=== PATIENT | female | born 1950 | race Caucasian/White ===

== ENCOUNTER 2019-09-29 14:43 | Outpatient (CLI) | payer MEDICARE, OTHER, SELFPAY ==
--- NOTE | 2019-09-29 14:55 | MM_ITS ---
WS: [id number] BILATERAL SCREENING DIGITAL MAMMOGRAM WITH CAD HISTORY: SCREENING COMPARISON: 03/27/2018 and 11/23/2016 Bilateral CC and MLO views submitted. Computer aided detection analyzed. Breast composition: There are scattered areas of fibroglandular density. No suspicious masses, microc alcifications or architectural distortion. Bilateral benign calcifications. MM/[id number] IMPRESSION: BI-RADS: 2-Benign FOLLOW UP: 1 Year Follow-up
--- NOTE | 2019-09-29 15:32 | XR_ITS ---
WS: [id number] SCREENING DEXA SCAN iLike CLINICAL INFORMATION: ASYMPTOMATIC POSTMENOPAUSAL COMPARISON: None. FINDINGS: The L1-L4 bone mineral density measures 0.929 g/cm2. This corresponds to a T score score of -2.1 and Z score of -0.4. Left femoral neck bone mineral density measures 0.861 g/cm2. This corresponds to a T score of -1.2 an d Z score of 0.2. Right femoral neck bone mineral density measures 0.848 g/cm2. This corresponds to a T score -1.3of an d Z score of 0.1. Mean femoral neck bone mineral density measures 0.855 g/cm2. This corresponds to a T score of -1.2 an d Z score of 0.2. XR/XR DEXA axial skeleton* [id number] IMPRESSION: Osteopenia Patient's FRAX calculated 10 year probability for major osteoporotic fracture i s 10.0 % and osteoporotic hip fracture is 1.7%.
== END 2019-09-29 14:44 | disposition home or self-care (01) ==
PROVIDERS: PCP Family Medicine; Visit Provider Family Medicine
DX: Z12.31 Encounter for screening mammogram for malignant neoplasm of breast (principal); Z78.0 Asymptomatic menopausal state; M85.89 Other specified disorders of bone density and structure, multiple sites
CPT/HCPCS: 77067; 77080

== ENCOUNTER 2021-01-05 13:58 | Outpatient (CLI) | payer MEDICARE, OTHER, SELFPAY ==
--- NOTE | 2021-01-05 14:07 | MM_ITS ---
WS: [id number] Exam: [id number] Date/Time of Exam: 01/05/2021 2:16 PM Reason For Exam: SCREENING VIEWS: MLO and CC views both breasts. Comparison made with prior exam of 08/27/2012, 11/23/2016 and 09/29/2019. Findings: There was no sign of mass, architectural distortion or suspicious calcification in either breast. He terogeneously dense MM/[id number] Impression: BI-RADS: 2-Benign FOLLOW-UP: 1 Year Follow-up This mammogram was also analyzed by the Computer Aided Detection System R2 Imag e Tumbler Tender.
== END 2021-01-05 13:59 | disposition home or self-care (01) ==
LOC: RADSHAW 14:05
PROVIDERS: PCP Family Medicine; Visit Provider Family Medicine
DX: Z12.31 Encounter for screening mammogram for malignant neoplasm of breast (principal)
CPT/HCPCS: 77067

== ENCOUNTER → 2021-11-09 08:00 | Outpatient (BNVA) | payer MEDICARE, OTHER, SELFPAY | PROVIDERS: PCP Family Medicine; Visit Provider Family Medicine | DX: Z00.00 Encounter for general adult medical examination without abnormal findings (principal) | CPT/HCPCS: 80053; 80061 ==

== ENCOUNTER → 2021-12-20 09:00 | Outpatient (BNVA) | payer MEDICARE, OTHER, SELFPAY | PROVIDERS: PCP Family Medicine; Visit Provider Family Medicine | DX: G25.0 Essential tremor (principal); F32.A Depression, unspecified; N39.0 Urinary tract infection, site not specified; R30.0 Dysuria | CPT/HCPCS: 81000; 87077; 87086; 87184 ==

== ENCOUNTER 2022-06-14 09:27 | Outpatient (CLI) | payer MEDICARE, OTHER, SELFPAY ==
--- NOTE | 2022-06-14 09:48 | MM_ITS ---
WS: [id number] BILATERAL SCREENING DIGITAL TOMOSYNTHESIS MAMMOGRAM WITH CAD HISTORY: SCREENING COMPARISON: 01/05/2021 and 09/29/2019 Bilateral CC and MLO views with tomosynthesis and synthetic mammography submitted. Computer aided det ection analyzed. Breast composition: There are scattered areas of fibroglandular density. No suspicious masses, microc alcifications or architectural distortion. Benign round coarse calcifications within each breast. MM/[id number] IMPRESSION: BI-RADS: 2-Benign FOLLOW UP: 1 Year Follow-up
== END 2022-06-14 09:28 | disposition home or self-care (01) ==
LOC: RAD 09:30
PROVIDERS: PCP Family Medicine; Visit Provider Family Medicine
DX: Z12.31 Encounter for screening mammogram for malignant neoplasm of breast (principal)
CPT/HCPCS: 77063; 77067

== ENCOUNTER → 2022-08-10 13:04 | Outpatient (BNVA) | payer MEDICARE, OTHER, SELFPAY | PROVIDERS: PCP Family Medicine; Visit Provider Family Medicine | DX: M79.10 Myalgia, unspecified site (principal) | CPT/HCPCS: 80053; 85025; 85651; 86140; 86160; 86162; 86235; 86255; 86376 ==

== ENCOUNTER 2022-12-04 10:10 | Emergency (ER) | payer MEDICARE, OTHER, SELFPAY ==
[2022-12-04 10:11] VITALS: PULSE 73; RESP 14; TEMP 36.6; O2SAT 95; BMI 23.5
--- NOTE | 2022-12-04 11:36 | ED_ITS ---
HPI - Weakness General: Chief complaint: Weakness Stated complaint: fall, head pain, confusion Time Seen by Provider: 12/04/22 11:27 Source: patient and family Mode of arrival: ambulatory History of Present Illness: 72-year-old female presents to the emergency room with complaints of generalized weakness. She has had confusion difficulty with gait had some falls recently this morning and seemed little worse she was weak in her legs she was trying to walk to the kitchen to make coffee and get to a chair in the course of this that she fell she denies striking her head denies any loss conscious denies a specific injury anywhere. She is not having any chest pain or shortness of breath. She is on clonazepam and alprazolam for anxiety has been started on propranolol for tremor. No recent fever sweats chills vomiting diarrhea dysuria urgency or frequency chest or abdominal pain. No dizziness no visual changes. MD Complaint: generalized weakness Onset (ago): hour(s) Duration: intermittent and improved Location: generalized Relieving factors: none Exacerbating factors: none Associated symptoms: Reports confusion; Denies chest pain, chills, melena, decreased appetite, diaphoresis, dysuria, easy bruising, fever(s), headache(s), myalgias, nausea, rash, short of breath, syncope or vomiting Review of Systems Const: Reports: fatigue and malaise; Denies: fever(s), chills or diaphoresis ENMT: Denies: throat pain, ear or mastoid pain or ear discharge Card: Denies: chest pain, palpitations, irregular heart rhythm, edema or syncope Resp: Denies: dyspnea, productive cough or non-productive cough GI: Denies: abdominal pain, nausea, vomiting or melena : Denies: dysuria, urinary frequency or urinary urgency Skin/Breast: Denies: rash or pruritus Neuro: Reports: confusion; Denies: headache(s) Lauro/Lymph: Denies: easy bruising PFSH ED PFSH: Medical History Depression Essential tremor Hypertension Social History Smoking and tobacco status: never smoked Second hand smoke exposure: No Alcohol intake: never Desire information about alcohol rehabilitation?: No Substance/Drug Use: never Desire information about substance/drug rehabilitation?: No Physical Exam Const: GENERAL APPEARANCE: cooperative and comfortable ORIENTATION/CONSCIOUSNESS: Yes awake, Yes oriented to person, Yes oriented to place and Yes oriented to time HENMT: COMMON NORMALS: normocephalic, atraumatic and hearing grossly normal bilaterally HEAD & SCALP: normocephalic and atraumatic Resp: COMMON NORMALS: normal respiratory effort, No retractions, No use of accessory muscles and clear to auscultation bilaterally AUSCULTATION: clear to auscultation bilaterally Cardio: COMMON NORMALS: regular rate, regular rhythm and No murmurs present (Cardio) RATE: regular rate RHYTHM: regular rhythm GI: COMMON NORMALS: Soft to palpation and No hepatosplenomegaly present AUSCULTATION: Yes normoactive bowel sounds PALPATION: Yes Soft to palpation, No Tenderness to palpation present (GI), No Guarding due to palpation present (GI) and Yes No hepatosplenomegaly present Extremity: COMMON NORMALS: normal to inspection, capillary refill normal, no clubbing, cyanosis or edema, no calf tenderness and no pedal edema Neuro: SENSORIUM/ORIENTATION: Yes oriented to person, Yes oriented to place and Yes oriented to time Skin: COMMON NORMALS: no rashes or lesions noted GENERAL SKIN EXAM: no rashes or lesions noted Course Vital Signs: Vital signs: Vital Signs Temperature 97.8 F 12/04/22 10:11 Pulse Rate 73 12/04/22 10:11 Respiratory Rate 14 12/04/22 10:11 Pulse Oximetry 95 12/04/22 10:11 Oxygen Delivery Me thod Room Air 12/04/22 10:11 MDM - Weakness Medical Decision Making Labs and imaging reviewed. CT head and CTA head and neck are all negative. Her symptoms for the most part resolved. Blood pressures reviewed at the bedside no hypotension. Unfortunately there is no blood pressure recorded chart. No significant findings on the work-up current symptoms are resolved. Suspect some of this may be related to her medications concerning medicine includes the alprazolam clonazepam hydrochlorothiazide and possibly metoprolol. She has listed metoprolol and propranolol. She has had several falls issues at home and weakness. She has no focal neurologic deficit at this time offered observation probably be looking at potential placement family did not want to do this would prefer to talk primary to review Medical Records I reviewed the patient's medical records. Lab Data I reviewed the patient's lab results. 12/04/22 11:46 12/04/22 11:46 Laboratory Results WBC 6.55 10^3/uL (3.29-11.43) 12/04/22 11:46 RBC 4.72 10^6/uL (3.85-5.65) 12/04/22 11:46 Hgb 14.40 g/dL (11.27-16.99) 12/04/22 11:46 Hct 40.6 % (36-47) 12/04/22 11:46 MCV 86.0 fl (85-98) 12/04/22 11:46 MCH 30.5 pg (27-33) 12/04/22 11:46 MCHC 35.5 g/dL (30-55) 12/04/22 11:46 RDW 11.9 % (12.1-15.1) L 12/04/22 11:46 Plt Count 346 10^3/cmm (157-399) 12/04/22 11:46 MPV 9.0 fL (7.4-10.4) 12/04/22 11:46 Neut % (Auto) 58.3 % 12/04/22 11:46 Lymph % (Auto) 27.6 % 12/04/22 11:46 Crisp % (Auto) 7.2 % 12/04/22 11:46 Eos % (Auto) 5.6 % 12/04/22 11:46 Baso % (Auto) 1.1 % 12/04/22 11:46 Neut # (Auto) 3.82 10^3/uL (1.8-7.7) 12/04/22 11:46 Lymph # (Auto) 1.8 10^3/uL (0.8-4.8) 12/04/22 11:46 Crisp # (Auto) 0.5 10^3/uL (0.2-0.9) 12/04/22 11:46 Eos # (Auto) 0.4 10^3/uL (0.0-0.8) 12/04/22 11:46 Baso # (Auto) 0.1 10^3/uL (0.0-0.1) 12/04/22 11:46 Nucleated RBC % (auto) 0 % 12/04/22 11:46 Nucleated RBCs # 0.0 /100WBC 12/04/22 11:46 Sodium 137 mmol/L (136-145) 12/04/22 11:46 Potassium 3.9 mmol/L (3.5-5.1) 12/04/22 11:46 Chloride 99 mmol/L (98-107) 12/04/22 11:46 Carbon Dioxide 28 mmol/L (22-29) 12/04/22 11:46 Anion Gap 13.9 (5-19) 12/04/22 11:46 BUN 9 mg/dL (8-23) 12/04/22 11:46 Creatinine 0.5 mg/dL (0.5-0.9) 12/04/22 11:46 GFR Calculation Not Reportable 12/04/22 11:46 Glucose 128 mg/dL (65-115) H 12/04/22 11:46 Calculated Osmolality 284 mOsm/kg (285-295) L 12/04/22 11:46 Calcium 9.1 mg/dL (8.5-10.5) 12/04/22 11:46 Total Bilirubin 0.3 mg/dL (0.15-1.2) 12/04/22 11:46 AST 26 U/L (0-32) 12/04/22 11:46 ALT 23 U/L (0-33) 12/04/22 11:46 Alkaline Phosphatase 99 U/L (35-105) 12/04/22 11:46 Total Protein 7.7 g/dL (6.6-8.7) 12/04/22 11:46 Albumin 4.4 g/dL (3.5-5.2) 12/04/22 11:46 Globulin 3.3 g/dL (1.3-4.6) 12/04/22 11:46 Urine Color Yellow (Yellow) 12/04/22 12:15 Urine Appearance Sl hazy (CLEAR) A 12/04/22 12:15 Urine pH 6 (5-7) 12/04/22 12:15 Ur Specific [place] 1.010 (1.005-1.030) 12/04/22 12:15 Urine Protein Neg (Negative) 12/04/22 12:15 Urine Glucose (UA) Norm (Normal) 12/04/22 12:15 Urine Ketones Negative (Negative) 12/04/22 12:15 Urine Blood Neg (Negative) 12/04/22 12:15 Urine Nitrate Positive (Negative) H 12/04/22 12:15 Urine Bilirubin Neg (Negative) 12/04/22 12:15 Urine Urobilinogen Norm mg/dL (Negative) 12/04/22 12:15 Ur Leukocyte Esterase Trace (Negative) H 12/04/22 12:15 Urine RBC None /hpf (0-2) 12/04/22 12:15 Urine WBC 5-10 /hpf (0-5) H 12/04/22 12:15 Ur Squamous Epith Cells None /hpf (0-5) 12/04/22 12:15 Amorphous Sediment Not Reportable 12/04/22 12:15 Urine Bacteria 2+ /hpf (NONE) H 12/04/22 12:15 Discharge Plan Discharge Patient Disposition: Home Clinical Impression: Weakness, Unsteadiness, Tremor Condition: Stable Prescriptions: No Action aspirin 81 mg tablet,delayed release (DR/EC) 81 mg PO BEDTIME metoprolol tartrate 50 mg tablet 75 mg PO BID amoxicillin-pot clavulanate [Augmentin] 500-125 mg tablet 1 tab PO TID Qty: 15 0RF famotidine 20 mg tablet 20 mg PO BID Qty: 60 11RF clonazepam [Klonopin] 0.5 mg tablet 0.5 mg PO BID Qty: 60 5RF multivitamin Tablet 1 tab PO QAM vitamin E 268 mg (400 unit) Capsule 1 cap PO DAILY Vitamin D3 25 mcg (1,000 unit) Tablet 50 mcg PO DAILY atorvastatin 40 mg tablet 40 mg PO BEDTIME alprazolam 1 mg tablet 0.5 mg PO QAM propranolol 10 mg tablet 10 mg PO BID Rx Instructions: FOR ESSENTIAL TREMORS trazodone 100 mg tablet 100 mg PO BEDTIME fluoxetine 20 mg capsule 20 mg PO QAM pregabalin 150 mg capsule 150 mg PO QAM hydrochlorothiazide 12.5 mg tablet 12.5 mg PO QAM Discharge Orders: Discharge ED (Routine); Ordered 12/04/22 Ordered By: Glen Perez Referrals: Kong Sherman MD [Primary Care Provider] - Discharge Diet: Usual diet Discharge Activity: Limit activity as instructed Patient Instructions: Opioid Safety, Pain Management Activity Restrictions/Additional Instructions: We seen today for weakness and unsteadiness. When nursing staff to do trial of ambulation he required 2 for assist. Recommended that you consider admission to further evaluate and seek rehab options. Your you have declined to pursue this option you are welcome return at any time if you should change your mind follow- up with your doctor to review your medications and for further evaluation. If any worsening or changes symptoms return. Coding Level of Care Code ED [employer] Crm Developer for Rayne Fisher
--- NOTE | 2022-12-04 11:43 | CT_ITS ---
WS: [id number] CT HEAD NONCONTRAST HISTORY: hedache/fall TECHNIQUE: Contiguous axial imaging performed through the brain in 3.0 mm imaging. Bone and soft tiss ue windows. Sagittal and coronal reformats reviewed. All CT scans at [facility] use at least one of these dose optimization techniques: automated exposure control; mA and/or kV adjustment per pa tient size (includes targeted exams where dose is matched to clinical indication); or iterative recon struction. DLP: 1059.79 mGy.cm COMPARISON: 05/02/2011 No acute intracranial hemorrhage, midline shift or mass effect. Moderate bilateral frontal lobe atrophy. Atrophy has slightly progressed since the prior study. Mild small vessel ischemic disease. No sulcal effacement or edema. Ventricles: Normal size with no hydrocephalus. No inferior displacement of the cerebellar tonsils. Paranasal sinuses: Moderate mucoperiosteal thickening in the sphenoid and ethmoid air cells. No air-f luid levels. Mastoid air cells: Well pneumatized. Calvarium and scalp: Skull is intact with no soft tissue edema or swelling. IMPRESSION: 1. No acute intracranial hemorrhage or edema. 2. Moderate bilateral frontal lobe atrophy. Mildly progressed atrophy since 2011. 3. Very minimal small vessel ischemic disease.
[2022-12-04 11:54] LABS: Basophils # 0.1 10^3/uL (0.0-0.1); Basophils % 1.1 %; Eosinophils # 0.4 10^3/uL (0.0-0.8); Eosinophils % 5.6 %; Hematocrit 40.6 % (36-47); Lymphocytes # 1.8 10^3/uL (0.8-4.8); Lymphocytes % 27.6 %; Mean Corpuscular HGB Conc 35.5 g/dL (30-55); Mean Corpuscular Hemoglobin 30.5 pg (27-33); Monocytes # 0.5 10^3/uL (0.2-0.9); Monocytes % 7.2 %; Neutrophils # 3.82 10^3/uL (1.8-7.7); Neutrophils % 58.3 %; Nucleated Red Blood Cells % 0 %; Platelet Count 346 10^3/cmm (157-399); Red Blood Count 4.72 10^6/uL (3.85-5.65); Red Cell Distribution Width 11.9 % (12.1-15.1); White Blood Count 6.55 10^3/uL (3.29-11.43)
[2022-12-04 12:17] LABS: Albumin Level 4.4 g/dL (3.5-5.2); Alkaline Phosphatase 99 U/L (35-105); Blood Urea Nitrogen 9 mg/dL (8-23); Calcium 9.1 mg/dL (8.5-10.5); Carbon Dioxide 28 mmol/L (22-29); Chloride 99 mmol/L (98-107); Globulin 3.3 g/dL (1.3-4.6); Glucose 128 mg/dL (65-115); Osmolality Calculated 284 mOsm/kg (285-295); Sodium 137 mmol/L (136-145); Total Bilirubin 0.3 mg/dL (0.15-1.2); Total Protein 7.7 g/dL (6.6-8.7)
[2022-12-04 12:31] LABS: Anion Gap 13.9 (5-19); Potassium 3.9 mmol/L (3.5-5.1)
[2022-12-04 12:37] LABS: Add Urine Microscopic? YES; Bilirubin Urine Neg (Negative); Blood Urine Neg (Negative); Glucose Urine UA Norm (Normal); Ketones Urine Negative (Negative); Leukocyte Esterase Urine Trace (Negative); Nitrate Urine Positive (Negative); Protein Urine Neg (Negative); Urine Appearance SL Hazy (CLEAR); Urine Color Yellow (Yellow); Urobilinogen Urine Norm (Negative); pH Urine 6 (5-7)
[2022-12-04 12:38] LABS: Add Urine Culture? Yes; Bacteria Urine 2+ /hpf
[2022-12-04 12:45] LABS: Alanine Aminotransferase 23 U/L (0-33); Aspartate Amino Transferase 26 U/L (0-32)
--- NOTE | 2022-12-04 12:56 | CT_ITS ---
WS: [id number] CT ANGIOGRAM CEREBRAL AND CAROTID ARTERIES HISTORY: ataxia TECHNIQUE: CT angiogram is performed of the carotid and cerebral arteries. During arterial injection imaging is obtained from the skull vertex to the aortic arch in 1.25 mm imaging. Coronal and sagittal reformats are submitted. Additional multi planar reformats of the carotid and cerebral arteries are submitted, MIP imaging also reviewed. NASCET criteria utilized. [facility] CT scans at [facility] e at least one of these dose optimization techniques: automated exposure control; mA and/or kV adjust ment per patient size (includes targeted exams where dose is matched to clinical indication); or iter ative reconstruction. CONTRAST: Omnipaque 350; 100 mL IV. DLP: 995.[address] head was performed. No acute hemorrhage. No mass effect. COMPARISON: 12/04/2022. Carotid Angiogram: Right carotid: Common carotid artery: Arises normally from the innominate artery. No significant plaque or stenosis. Internal carotid artery: Mild plaque. No stenosis. External carotid artery: Patent. Left carotid: Common carotid artery: Arises normally from the aorta. No significant plaque or stenosis. Internal carotid artery: Mild plaque no stenosis. External carotid artery: Patent. Right vertebral artery: Mildly dominant. No stenosis or occlusion. Left vertebral artery: Unremarkable. Arises normally from the subclavian artery. Subclavian arteries: No stenosis or significant abnormality. Upper thorax: Normal. Thyroid gland: LEFT thyroid nodule 11 mm. Osseous structures: Minimal degenerative disc disease in the mid cervical spine. 2 mm anterolisthesis of C4. CEREBRAL ANGIOGRAM: Intracranial vertebral arteries: Normal with no significant atherosclerosis. Basilar artery: No significant stenosis or occlusion. No aneurysm. Intracranial Internal carotid arteries: Minimal atherosclerosis. No occlusions. Middle cerebral arteries: Normal. Anterior cerebral arteries and ACOM: Normal. Posterior cerebral arteries and PCOM's: Normal. Dural venous sinuses are normally enhancing. Mastoid air cells: Normal. Paranasal sinuses: Mild paranasal sinus disease. Calvarium: Normal. IMPRESSION: 1. No significant cervical or intracranial carotid artery stenosis. Mild scattered plaque. 2. No aneurysms or significant stenosis intracranial carotid arteries or in the [place].
[2022-12-04] MEDS: iohexol 350 mg/mL 500 mL Btl (per mL) IV (13:35)
== END 2022-12-04 15:14 | disposition home or self-care (01) ==
PROVIDERS: Emergency Provider Family Medicine; PCP Family Medicine
DX: R53.1 Weakness (principal); R26.81 Unsteadiness on feet; R25.1 Tremor, unspecified; Z79.82 Long term (current) use of aspirin; I10 Essential (primary) hypertension
CPT/HCPCS: 36415; 70450; 70496; 70498; 80053; 81001; 85025; 87077; 87086; 87186; 99285; Q9967

== ENCOUNTER → 2022-12-14 09:51 | Outpatient (BNVA) | payer MEDICARE, OTHER, SELFPAY | PROVIDERS: PCP Family Medicine; Referring Provider Family Medicine; Visit Provider Internal Medicine Rheumatology | DX: Z79.899 Other long term (current) drug therapy (principal); M19.041 Primary osteoarthritis, right hand; M19.072 Primary osteoarthritis, left ankle and foot; M32.9 Systemic lupus erythematosus, unspecified; R76.8 Other specified abnormal immunological findings in serum | CPT/HCPCS: 72040; 73130; 73630; 99204 ==

== ENCOUNTER 2022-12-27 10:11 | Outpatient (CLI) | payer MEDICARE, OTHER, SELFPAY ==
[2022-12-27 10:53] LABS: Erythrocyte Sedimentation Rate 17 mm/hr (0-15)
[2022-12-27 11:23] LABS: Hepatitis C Virus Antibody Non-Reactive (Nonreactive)
[2022-12-27 11:26] LABS: 25 Hydroxy Vitamin D 51 ng/mL (30-100)
[2022-12-27 11:31] LABS: Hepatitis B Core AB, Total Non-Reactive (Nonreactive); Hepatitis B Surface Antigen Non-Reactive (Nonreactive)
[2022-12-28 16:05] LABS: Cyclic Citrullinated Peptide 17 UNITS
[2023-01-01 20:25] LABS: Quantiferon Mitogen >10.00 IU/mL; Quantiferon Nil 0.06 IU/mL; Quantiferon Plus TB1 <0.00 IU/mL; Quantiferon Plus TB2 <0.00 IU/mL; Quantiferon TB Gold NEGATIVE (NEGATIVE)
== END 2022-12-27 10:12 | disposition home or self-care (01) ==
PROVIDERS: PCP Family Medicine; Visit Provider Internal Medicine Rheumatology
DX: M19.90 Unspecified osteoarthritis, unspecified site (principal); Z79.899 Other long term (current) drug therapy; Z11.59 Encounter for screening for other viral diseases; Z11.1 Encounter for screening for respiratory tuberculosis
CPT/HCPCS: 36415; 82306; 85651; 86140; 86200; 86431; 86480; 86704; 86803; 87340

== ENCOUNTER → 2023-03-08 12:05 | Outpatient (BNVA) | payer MEDICARE, OTHER, SELFPAY | PROVIDERS: PCP Family Medicine; Visit Provider Family Medicine | DX: N39.0 Urinary tract infection, site not specified (principal) | CPT/HCPCS: 81000; 87077; 87086; 87184 ==

== ENCOUNTER → 2023-04-11 14:17 | Outpatient (BNVA) | payer MEDICARE, OTHER, SELFPAY | PROVIDERS: PCP Family Medicine; Visit Provider Internal Medicine Rheumatology | DX: Z79.899 Other long term (current) drug therapy (principal); M32.9 Systemic lupus erythematosus, unspecified; R76.8 Other specified abnormal immunological findings in serum; Z71.85 Encounter for immunization safety counseling; M06.041 Rheumatoid arthritis without rheumatoid factor, right hand; M06.042 Rheumatoid arthritis without rheumatoid factor, left hand | CPT/HCPCS: 36415; 80076; 82565; 85025; 86140; 99214 ==

== ENCOUNTER 2023-06-05 09:55 | Outpatient (CLI) | payer MEDICARE, OTHER, SELFPAY | END 2023-06-05 09:56 | disposition home or self-care (01) | LOC: LAB 09:58 | PROVIDERS: PCP Family Medicine; Visit Provider Internal Medicine Rheumatology | DX: M19.90 Unspecified osteoarthritis, unspecified site (principal); Z79.899 Other long term (current) drug therapy | CPT/HCPCS: 80076; 82565; 85025; 86140 ==

== ENCOUNTER → 2023-06-19 10:58 | Outpatient (BNVA) | payer MEDICARE, OTHER, SELFPAY | PROVIDERS: PCP Family Medicine; Visit Provider Nurse Practitioner Family | DX: L81.4 Other melanin hyperpigmentation (principal); L57.8 Other skin changes due to chronic exposure to nonionizing radiation; D22.5 Melanocytic nevi of trunk; Z85.820 Personal history of malignant melanoma of skin | CPT/HCPCS: 99213 ==

== ENCOUNTER → 2023-08-06 14:23 | Outpatient (BNVA) | payer MEDICARE, OTHER, SELFPAY | PROVIDERS: PCP Family Medicine; Visit Provider Internal Medicine Rheumatology | DX: Z79.899 Other long term (current) drug therapy (principal); M06.041 Rheumatoid arthritis without rheumatoid factor, right hand; M06.042 Rheumatoid arthritis without rheumatoid factor, left hand; R76.8 Other specified abnormal immunological findings in serum; Z71.85 Encounter for immunization safety counseling | CPT/HCPCS: 99214 ==

== ENCOUNTER 2023-08-08 11:12 | Outpatient (CLI) | payer MEDICARE, OTHER, SELFPAY ==
--- NOTE | 2023-08-08 11:17 | MM_ITS ---
WS: [id number] BILATERAL 3D TOMOSYNTHESIS DIGITAL SCREENING MAMMOGRAPHY WITH CAD CLINICAL INFORMATION: SCREENING HISTORY: Screening mammogram. No current complaints. COMPARISON: 2022 TECHNIQUE: Bilateral CC and MLO views. FINDINGS: Scattered fibroglandular densities bilaterally. Small increasing asymmetric density upper quadrant LE FT breast best seen on the MLO view. Recommend LEFT breast diagnostic mammography and ultrasound if p ersistent. Incidental punctate and lucent centered calcifications. Unremarkable RIGHT breast. MM/[id number] IMPRESSION: BI-RADS: 0-Incomplete: Need additional imaging evaluation FOLLOW UP: Need Additional Imaging Recommend LEFT breast diagnostic mammography and ultrasound if persistent.
== END 2023-08-08 11:13 | disposition home or self-care (01) ==
LOC: RAD 11:13
PROVIDERS: PCP Family Medicine; Visit Provider Family Medicine
DX: R92.8 Other abnormal and inconclusive findings on diagnostic imaging of breast (principal); R92.323 Mammographic fibroglandular density, bilateral breasts; R92.30 Dense breasts, unspecified; R92.1 Mammographic calcification found on diagnostic imaging of breast
CPT/HCPCS: 77063; 77067

== ENCOUNTER 2023-09-06 08:34 | Outpatient (CLI) | payer MEDICARE, OTHER, SELFPAY ==
--- NOTE | 2023-09-06 08:44 | US_ITS ---
WS: [id number] LEFT 3D TOMOSYNTHESIS DIGITAL MAMMOGRAPHY WITH CAD CLINICAL INFORMATION: Abnormal mammogram HISTORY: Additional views COMPARISON: 08/08/2023 TECHNIQUE: 3 views of the left breast were obtained. FINDINGS: Scattered fibroglandular densities of the left breast. Again seen is the small asymmetric density upp er outer quadrant LEFT breast. This partially compresses out on spot compression views. Ultrasound is pending. ULTRASOUND BREAST LEFT TECHNIQUE: Ultrasound left breast focused area of concern. CLINICAL INFORMATION: Abnormal mammogram FINDINGS: Ultrasound upper outer quadrant. Tiny incidental cyst at the 1 o'clock position 1 cm from the nipple measuring 2 x 1 mm. No other suspicious findings. Findings are benign. Recommend return to annual scr eening mammography. US/US breast LT limited* [id number] IMPRESSION: BI-RADS: 2-Benign FOLLOW UP: 1 Year Follow-up Recommend return to annual screening mammography.
--- NOTE | 2023-09-06 09:00 | MM_ITS ---
WS: [id number] LEFT 3D TOMOSYNTHESIS DIGITAL MAMMOGRAPHY WITH CAD CLINICAL INFORMATION: Abnormal mammogram HISTORY: Additional views COMPARISON: 08/08/2023 TECHNIQUE: 3 views of the left breast were obtained. FINDINGS: Scattered fibroglandular densities of the left breast. Again seen is the small asymmetric density upp er outer quadrant LEFT breast. This partially compresses out on spot compression views. Ultrasound is pending. ULTRASOUND BREAST LEFT TECHNIQUE: Ultrasound left breast focused area of concern. CLINICAL INFORMATION: Abnormal mammogram FINDINGS: Ultrasound upper outer quadrant. Tiny incidental cyst at the 1 o'clock position 1 cm from the nipple measuring 2 x 1 mm. No other suspicious findings. Findings are benign. Recommend return to annual scr eening mammography. MM/[id number] IMPRESSION: BI-RADS: 2-Benign FOLLOW UP: 1 Year Follow-up Recommend return to annual screening mammography.
== END 2023-09-06 08:35 | disposition home or self-care (01) ==
LOC: RAD 08:35
PROVIDERS: PCP Family Medicine; Visit Provider Family Medicine
DX: R92.8 Other abnormal and inconclusive findings on diagnostic imaging of breast (principal); R92.323 Mammographic fibroglandular density, bilateral breasts
CPT/HCPCS: 76642; 77061; G0279

== ENCOUNTER 2023-09-26 11:18 | Outpatient (CLI) | payer MEDICARE, OTHER, SELFPAY ==
[2023-09-26 11:53] LABS: Basophils # 0.1 10^3/uL (0.0-0.1); Basophils % 1.2 %; Eosinophils # 0.6 10^3/uL (0.0-0.8); Eosinophils % 11.3 %; Hematocrit 40.6 % (36-47); Lymphocytes # 1.3 10^3/uL (0.8-4.8); Mean Corpuscular HGB Conc 32.8 g/dL (30-55); Mean Corpuscular Hemoglobin 30.2 pg (27-33); Mean Corpuscular Volume 92.1 fl (85-98); Mean Platelet Volume 9.6 fL (7.4-10.4); Monocytes # 0.4 10^3/uL (0.2-0.9); Monocytes % 8.2 %; Neutrophils # 2.58 10^3/uL (1.8-7.7); Neutrophils % 51.9 %; Nucleated Red Blood Cells % 0 %; Platelet Count 312 10^3/cmm (157-399); Red Blood Count 4.41 10^6/uL (3.85-5.65); Red Cell Distribution Width 12.3 % (12.1-15.1); White Blood Count 4.97 10^3/uL (3.29-11.43)
[2023-09-26 12:11] LABS: Alanine Aminotransferase 17 U/L (0-33); Albumin Level 4.3 g/dL (3.5-5.2); Alkaline Phosphatase 83 U/L (35-105); Aspartate Amino Transferase 22 U/L (0-32); Globulin 3.6 g/dL (1.3-4.6); Total Bilirubin 0.3 mg/dL (0.15-1.2); Total Protein 7.9 g/dL (6.6-8.7)
[2023-10-04 15:54] LABS: TPMT Activity 12
== END 2023-09-26 11:19 | disposition home or self-care (01) ==
LOC: LAB 11:20
PROVIDERS: PCP Family Medicine; Visit Provider Internal Medicine Rheumatology
DX: Z79.899 Other long term (current) drug therapy (principal); M06.041 Rheumatoid arthritis without rheumatoid factor, right hand; M06.042 Rheumatoid arthritis without rheumatoid factor, left hand
CPT/HCPCS: 36415; 80076; 82565; 82657; 85025; 86140

== ENCOUNTER 2023-11-08 09:25 | Outpatient (CLI) | payer MEDICARE, OTHER, SELFPAY ==
[2023-11-08 09:51] LABS: Basophils # 0.1 10^3/uL (0.0-0.1); Basophils % 1.2 %; Eosinophils # 0.5 10^3/uL (0.0-0.8); Eosinophils % 9.8 %; Hematocrit 37.7 % (36-47); Lymphocytes # 1.2 10^3/uL (0.8-4.8); Lymphocytes % 22.5 %; Mean Corpuscular HGB Conc 33.2 g/dL (30-55); Mean Corpuscular Hemoglobin 30.6 pg (27-33); Mean Corpuscular Volume 92.4 fl (85-98); Mean Platelet Volume 9.3 fL (7.4-10.4); Monocytes # 0.4 10^3/uL (0.2-0.9); Monocytes % 7.6 %; Neutrophils # 2.99 10^3/uL (1.8-7.7); Neutrophils % 58.5 %; Nucleated Red Blood Cells % 0 %; Platelet Count 299 10^3/cmm (157-399); Red Blood Count 4.08 10^6/uL (3.85-5.65); Red Cell Distribution Width 12.6 % (12.1-15.1); White Blood Count 5.11 10^3/uL (3.29-11.43)
[2023-11-08 10:11] LABS: Alanine Aminotransferase 13 U/L (0-33); Albumin Level 4.3 g/dL (3.5-5.2); Alkaline Phosphatase 65 U/L (35-105); Anion Gap 14.2 (5-19); Aspartate Amino Transferase 19 U/L (0-32); Blood Urea Nitrogen 19 mg/dL (8-23); Calcium 9.2 mg/dL (8.5-10.5); Carbon Dioxide 27 mmol/L (22-29); Chloride 105 mmol/L (98-107); Chol HDL Ratio 2.96 mg/dL (0.0-4.40); Cholesterol 157 mg/dL (0-200); Globulin 2.9 g/dL (1.3-4.6); Glucose 108 mg/dL (65-115); HDL Cholesterol 53 mg/dL (60-100); LDL Cholesterol Calculated 82 mg/dL (50-129); LDL HDL Ratio 1.55 RATIO (0.00-3.22); Osmolality Calculated 297 mOsm/kg (285-295); Potassium 4.2 mmol/L (3.5-5.1); Sodium 142 mmol/L (136-145); Total Bilirubin 0.4 mg/dL (0.15-1.2); Total Protein 7.2 g/dL (6.6-8.7); Triglycerides 111 mg/dL (0-150)
== END 2023-11-08 09:26 | disposition home or self-care (01) ==
LOC: LAB 09:27
PROVIDERS: PCP Family Medicine; Visit Provider Internal Medicine Rheumatology
DX: I10 Essential (primary) hypertension (principal); M06.041 Rheumatoid arthritis without rheumatoid factor, right hand; M06.042 Rheumatoid arthritis without rheumatoid factor, left hand; Z79.899 Other long term (current) drug therapy; F32.A Depression, unspecified; G25.0 Essential tremor
CPT/HCPCS: 36415; 80048; 80061; 80076; 85025; 86140

== ENCOUNTER → 2023-12-12 10:12 | Outpatient (BNVA) | payer MEDICARE, OTHER, SELFPAY | PROVIDERS: PCP Family Medicine; Visit Provider Nurse Practitioner Family | DX: L65.9 Nonscarring hair loss, unspecified (principal); L81.4 Other melanin hyperpigmentation; L57.8 Other skin changes due to chronic exposure to nonionizing radiation; D22.5 Melanocytic nevi of trunk; Z85.820 Personal history of malignant melanoma of skin | CPT/HCPCS: 99214 ==

== ENCOUNTER → 2023-12-17 13:02 | Outpatient (BNVA) | payer MEDICARE, OTHER, SELFPAY | PROVIDERS: PCP Family Medicine; Visit Provider Internal Medicine Rheumatology | DX: R76.8 Other specified abnormal immunological findings in serum (principal); Z79.899 Other long term (current) drug therapy; Z71.85 Encounter for immunization safety counseling; M06.041 Rheumatoid arthritis without rheumatoid factor, right hand; M06.042 Rheumatoid arthritis without rheumatoid factor, left hand | CPT/HCPCS: 99214 ==

== ENCOUNTER → 2024-04-21 13:30 | Outpatient (BNVA) | payer MEDICARE, OTHER, SELFPAY | PROVIDERS: PCP Family Medicine; Visit Provider Internal Medicine Rheumatology | DX: Z79.899 Other long term (current) drug therapy (principal); M06.041 Rheumatoid arthritis without rheumatoid factor, right hand; M06.042 Rheumatoid arthritis without rheumatoid factor, left hand; M54.9 Dorsalgia, unspecified; R76.8 Other specified abnormal immunological findings in serum; Z71.85 Encounter for immunization safety counseling | CPT/HCPCS: 36415; 72072; 80076; 82565; 85025; 85651; 86140; 99214 ==

== ENCOUNTER → 2024-08-20 08:53 | Outpatient (BNVA) | payer MEDICARE, OTHER, SELFPAY | PROVIDERS: PCP Family Medicine; Visit Provider Internal Medicine Rheumatology | DX: R76.8 Other specified abnormal immunological findings in serum (principal); Z79.899 Other long term (current) drug therapy; Z71.85 Encounter for immunization safety counseling; M06.041 Rheumatoid arthritis without rheumatoid factor, right hand; M06.042 Rheumatoid arthritis without rheumatoid factor, left hand | CPT/HCPCS: 36415; 80076; 82565; 85025; 85651; 86140; 86480; 99214 ==

== ENCOUNTER 2024-09-08 09:33 | Outpatient (CLI) | payer MEDICARE, OTHER, SELFPAY ==
--- NOTE | 2024-09-08 09:37 | MM_ITS ---
WS: [id number] BILATERAL SCREENING DIGITAL TOMOSYNTHESIS MAMMOGRAM WITH CAD HISTORY: SCREENING COMPARISON: 08/10/2023, 08/08/2023, 06/14/2022 Bilateral CC and MLO views with tomosynthesis and synthetic mammography submitted. Computer aided detection analyzed. Breast composition: There are scattered areas of fibroglandular density. No suspicious masses, microcalcifications or architectural distortion. Benign calcifications in each breast. MM/MM scr tomosynthesis [id number] IMPRESSION: BI-RADS: 2 - Benign. FOLLOW UP: 1 Year Follow-up
== END 2024-09-08 09:34 | disposition home or self-care (01) ==
PROVIDERS: PCP Family Medicine; Visit Provider Family Medicine
DX: Z12.31 Encounter for screening mammogram for malignant neoplasm of breast (principal); R92.323 Mammographic fibroglandular density, bilateral breasts; R92.1 Mammographic calcification found on diagnostic imaging of breast
CPT/HCPCS: 77063; 77067

== ENCOUNTER → 2024-10-17 10:25 | Outpatient (BNVA) | payer MEDICARE, OTHER, SELFPAY | PROVIDERS: PCP Family Medicine; Visit Provider Nurse Practitioner Family | DX: L70.0 Acne vulgaris (principal); L72.0 Epidermal cyst; L57.8 Other skin changes due to chronic exposure to nonionizing radiation; L81.4 Other melanin hyperpigmentation; D22.5 Melanocytic nevi of trunk; Z08 Encounter for follow-up examination after completed treatment for malignant neoplasm; Z85.820 Personal history of malignant melanoma of skin; L57.0 Actinic keratosis | CPT/HCPCS: 17000; 99214 ==

== ENCOUNTER → 2024-12-22 12:39 | Outpatient (BNVA) | payer MEDICARE, OTHER, SELFPAY | PROVIDERS: PCP Family Medicine; Visit Provider Internal Medicine Rheumatology | DX: R76.8 Other specified abnormal immunological findings in serum (principal); Z79.899 Other long term (current) drug therapy; Z71.85 Encounter for immunization safety counseling; M06.041 Rheumatoid arthritis without rheumatoid factor, right hand; M06.042 Rheumatoid arthritis without rheumatoid factor, left hand | CPT/HCPCS: 36415; 80076; 82565; 85025; 85651; 86140; 99214 ==